=== PATIENT | female | born 1975 | race Caucasian/White ===

== ENCOUNTER → 2017-03-19 | Day surgery (SDC) | payer OTHER ==
[~2017-03-19] MED LIST: BUSPIRONE HCL10 MG PO; GABAPENTIN600 MG PO; MOTRIN600 MG PO; PANTOPRAZOLE SO40 MG PO; ZANAFLEX4 M1 PO
--- NOTE | ~2017-03-19 | OR ---
Unit #: [id number] #: [id number] Patient: CLARI MONTES [id number] [address] [address] [id number] O MR#: [id number] NAME: CLARI MONTES ROOM: Date of Procedure: 03/19/2017 Admission Date: 03/19/2017 Surgeon: Alex Roe M.D. : 1975 Attending Physician: Alex Roe M.D. Primary Care Physician: Dianna Stone OPERATIVE REPORT PROCEDURE PERFORMED Esophagogastroduodenoscopy with biopsy. INDICATIONS FOR PROCEDURE 1. The patient with significant epigastric pain, nausea, vomiting, undergoing evaluation with upper endoscopy and medications. Small ulcer in the gastric antrum along with significant gastritis. Biopsies taken. 2. Normal esophagus. 3. Normal duodenum and distal duodenum. PLAN 1. PPI therapy. 2. Avoid NSAIDs. 3. Treat for H. pylori if positive. DESCRIPTION OF PROCEDURE The patient was explained of the procedure, risks, and benefits along with risks and benefits of anesthesia. She was brought to the endoscopy room. Propofol anesthesia was given. Bite block was placed. The scope was passed down the mouth and esophagus, stomach, duodenum, and distal duodenum. Findings as described. Biopsies taken. Gently, I pulled the scope out of the patient's mouth. She tolerated it well. Dictated by... Heydi Moore/kiana TD: 03/20/2017 23:25 JOB #: [id number] OPERATIVE REPORT Page 1 of 1 X Alex Roe MD X PROCEDURE OPERATIVE NOTE
--- NOTE | ~2017-03-19 | OR ---
Unit #: [id number] #: [id number] Patient: CLARI MONTES [id number] [address] [address] [id number] O MR#: [id number] NAME: CLARI MONTES ROOM: Date of Procedure: 03/19/2017 Admission Date: 03/19/2017 Surgeon: Alex Roe M.D. : 1975 Attending Physician: Alex Roe M.D. Primary Care Physician: Dianna Stone OPERATIVE REPORT PROCEDURE PERFORMED Esophagogastroduodenoscopy with biopsies. INDICATIONS Right upper quadrant pain, nausea, vomiting, and GERD symptoms. MEDICATIONS Monitored anesthesia. POSTOPERATIVE FINDINGS 1. Normal esophagus. 2. Mild diffuse gastritis along with small superficial gastric antral ulcer. Biopsies were taken. 3. Normal duodenum and distal duodenum. PLAN Follow up on the pathology report. Continue PPI therapy. Avoid NSAIDs. DESCRIPTION OF PROCEDURE The patient was explained of the procedure, risks, and benefits along with risks and benefits of anesthesia. She was brought to the endoscopy room. Propofol anesthesia was given. Bite-block was placed. The scope was passed down the mouth and esophagus, stomach, duodenum, and distal duodenum. Findings as described. Biopsies were taken. Gently, I pulled the scope out of the patient's mouth. She tolerated it well. Dictated by... Heydi Moore/kiana TD: 03/19/2017 11:54 JOB #: [id number] CC: Alex Roe M.D. Unit #: [id number] #: [id number] Patient: CLARI MONTES OPERATIVE REPORT Page 1 of 1 X Alex Roe MD PROCEDURE OPERATIVE NOTE
[2017-03-19 11:04] LABS: BASOPHIL% 0.7 % (0-2.5); EOSINOPHIL# 0.2 X10e3 (0-0.7); EOSINOPHIL% 2.1 % (0.0-7.0); HEMATOCRIT 38.7 % (35.0-45.0); LYMPHOCYTE% 40.1 % (17.0-45.0); MEAN CELL VOLUME 95.7 FL (83-96); MEAN CORPUSCULAR HEMOGLOBIN 32.1 PG (28-34); MEAN CORPUSCULAR HGB CONC 33.5 g/dL (30-36); MEAN PLATELET VOLUME 8.4 FL (6.5-11.5); MONOCYTE# 0.4 X10e3 (0-1.0); MONOCYTE% 5.4 % (3.0-12.0); NEUTROPHIL# 3.9 X10e3 (1.5-7.1); NEUTROPHIL% 51.7 % (40-75); PLATELET COUNT 261 X10e3 (140-420); RED BLOOD COUNT 4.04 X10e (3.90-5.30); RED CELL DISTRIBUTION WIDTH 13.1 % (11.0-15.5); WHITE BLOOD COUNT 7.5 X10e3 (4.0-10.5)
[2017-03-19 11:13] LABS: DIFF IND NO
[2017-03-19 11:43] LABS: ALBUMIN SERUM 3.8 g/dL (3.5-5.0); BILIRUBIN,TOTAL 0.4 mg/dL (0.2-2.0); BUN/CREATININE RATIO 8.57; CALCIUM SERUM 8.8 mg/dL (8.4-10.2); CREATININE SERUM 0.7 mg/dL (0.6-1.4); GLOM FILT RATE Estimated 108.4 mL/min (>60); POTASSIUM 3.3 mmol/L (3.5-5.1); PROTEIN TOTAL SERUM 6.5 g/dL (6.0-8.3)
[2017-03-22 17:38] LABS: GLIADIN IGA AB 6 Units (<20); GLIADIN IGG AB 4 Units (<20); RETICULIN IGA SCREEN W/REFLEX Negative (Negative); TISSUE TRANSGLUTAMINASE IGA AB 1 U/mL (<4)
== END | disposition home or self-care (01) ==
LOC: COPS 07:34
PROVIDERS: Internal Medicine
DX: K29.50 Unspecified chronic gastritis without bleeding (principal); K25.9 Gastric ulcer, unspecified as acute or chronic, without hemorrhage or perforation; K21.9 Gastro-esophageal reflux disease without esophagitis; F17.210 Nicotine dependence, cigarettes, uncomplicated; M19.90 Unspecified osteoarthritis, unspecified site; Z79.1 Long term (current) use of non-steroidal anti-inflammatories (NSAID); Z98.890 Other specified postprocedural states
CPT/HCPCS: 80053; 83516; 84703; 85025; 86255; 88305; 88312